=== PATIENT | female | born 1935 | race Hispanic/Latino ===

== ENCOUNTER 2017-01-28 10:11 | Emergency (ER) | payer MEDICARE, MEDICAID | END 2017-01-28 11:17 | disposition home or self-care (01) | LOC: SCSER 10:11 | DX: R23.4 Changes in skin texture (principal); Z85.72 Personal history of non-Hodgkin lymphomas; I11.0 Hypertensive heart disease with heart failure; I50.9 Heart failure, unspecified; E78.5 Hyperlipidemia, unspecified | CPT/HCPCS: 99283 ==

== ENCOUNTER 2017-02-16 10:10 | Outpatient (CLI) | payer MEDICARE, MEDICAID ==
--- NOTE | 2017-02-16 13:11 | CT ---
CT OF THE BRAIN WITHOUT AND WITH CONTRAST: Date: 02/16/17 COMPARISON: None. HISTORY: Follicular lymphoma, Grade II, with mass right side of face. TECHNIQUE: Multiple contiguous axial images were obtained in a CT of the brain without and with IV contrast. FINDINGS: The brain is normal in morphology and attenuation without focal lesions or confluent areas of infarct ion. There is no evidence of hydrocephalus, intracranial hemorrhage, or extra-axial fluid collection. No abnormal enhancement is seen. The calvarium and overlying soft tissues are unremarkable. The paranasal sinuses and mastoid air cell s are well aerated. There appear to be prominent lymph nodes in the neck, right greater than left, but these are only par tially visualized. IMPRESSION: No significant intracranial abnormality. POS: [facility]
--- NOTE | 2017-02-16 13:28 | CT ---
CT OF THE SINUSES WITH AND WITHOUT CONTRAST: CLINICAL HISTORY: Follicular lymphoma, grade 2. FINDINGS: Noncontrast imaging reveals numerous bilateral parotid and periparotid enlarged lymph nodes, which de monstrate avid enhancement. A dominant sized grouping of lymph nodes is at the right posterior parot id region, at 18 mm in diameter. There is added soft tissue of the right preauricular region bilater ally, more notable on the right, which may relate to adenopathy or, alternatively, a component of acc essory salivary gland tissue. On the right, this region measures 2.6 cm. There is prominent opacifi cation of the right major sphenoid air cell, with an associated fluid level, with scattered additiona l mucosal thickening of the paranasal sinuses. There is mild mastoid opacification bilaterally. No acute osseous pathology evident. Orbital contents are nonacute in appearance. The lacrimal glands a re symmetric in volume bilaterally, as are the extraocular muscles. IMPRESSION: Extensive bilateral adenopathy of the face, primarily at the parotid/periparotid regions, correspondi ng to the patient's history of lymphoma. POS: [facility]
--- NOTE | 2017-02-16 13:40 | CT ---
CT OF THE CHEST WITHOUT AND WITH CONTRAST: COMPARISON: None. HISTORY: Follicular lymphoma, grade II. TECHNIQUE: Multiple contiguous axial images were obtained in a CT of the chest without and with contrast. Coron al reformats were performed. This exam was done with and without contrast as the insurance company [employer] only approve a with and without contrast and not a with contrast only. FINDINGS: The heart is enlarged. Atherosclerotic calcifications are seen in the aorta and coronary arteries. There are enlarged mediastinal lymph nodes. The largest is seen in the prevascular space measuring 2 .5 cm in greatest dimension. No focal infiltrates are seen in the lungs. Atelectasis is seen in the lung bases. No pleural effus ion is seen. There is a calcified granuloma in the left upper lobe. Degenerative changes are seen in the spine. There are enlarged retroperitoneal lymph nodes in the vi sualized upper abdomen. There also appear to be enlarged cheikh hepatis lymph nodes measuring up to 1 .6 cm in size. The other visualized upper abdominal organs are unremarkable. The chest wall soft ti ssues are unremarkable. No axillary adenopathy is seen. IMPRESSION: 1. Enlarged hilar lymph nodes as above. 2. Enlarged cheikh hepatis and retroperitoneal lymph nodes in the upper abdomen. POS: [facility]
== END 2017-02-16 10:11 | disposition home or self-care (01) ==
LOC: CT 10:10
PROVIDERS: ATTEND Internal Medicine Hematology & Oncology
DX: C82.18 Follicular lymphoma grade II, lymph nodes of multiple sites (principal); R22.0 Localized swelling, mass and lump, head
CPT/HCPCS: 70470; 71270

== ENCOUNTER 2017-02-26 10:32 | Emergency (ER) | payer MEDICARE, MEDICAID ==
[2017-02-26 11:14] LABS: #Eosinphils 0.4 thou/uL (0.0-0.7); #Lymphocytes 1.2 thou/uL (1.20-3.40); #Monocytes 1.1 thou/uL (0.11-0.59); #Neutrophils 6.6 thou/uL (1.40-6.50); %Basophils 0.5 % (0.0-1.0); %Eosinophils 4.8 % (0.0-10.0); %Lymphocytes 12.4 % (21.0-51.0); %Monocytes 11.4 % (0.0-10.0); %Neutrophils 70.9 % (42.0-75.0); Hemoglobin 13.9 g/dL (12.0-16.0); Mean Corpuscular HGB CONC 32.5 g/dL (32.0-36.0); Mean Corpuscular Hemoglobin 29.2 pg (27.0-31.0); Mean Corpuscular Volume 89.6 fl (81.0-99.0); Mean Platelet Volume 7.7 fL (7.4-10.4); Platelet Count 241 thou/uL (130-400); RBC Distribution Width 13.3 % (11.5-14.5); Red Blood Cell (RBC) Count 4.76 mill/uL (4.20-5.40); White Blood Cell (WBC) Count 9.4 thou/uL (4.8-10.8)
--- NOTE | 2017-02-26 11:31 | RAD ---
CHEST 1 VIEW: Date: 02/26/17 HISTORY: Chest pain. COMPARISON: 03/06/14, 09/05/11. FINDINGS: Portable supine chest demonstrates cardiomegaly and atherosclerosis of aorta. Pulmonary vessels and h ilum are normal. Minimal blunting left costophrenic angle. Right costophrenic angle is clear. Interst itial changes in left lung base. No pneumothorax on this supine projection. IMPRESSION: 1. Interstitial changes in the left lung base. 2. Atherosclerosis. POS: [facility]
[2017-02-26 11:42] LABS: CKMB 1.3 ng/mL (0-6.6)
[2017-02-26 11:46] LABS: ALT (SGPT) 18 U/L (8-55); AST (SGOT) 28 U/L (5-34); Albumin 4.4 g/dL (3.4-4.8); Alkaline Phosphatase 96 U/L (40-150); Anion Gap 17 mmol/L (10-20); BUN (Urea Nitrogen) 11 mg/dL (9.8-20.1); Bilirubin, Total 0.9 mg/dL (0.2-1.2); CK (CPK) 54 U/L (29-168); CRP (Inflammatory) 1.21 mg/dL (= or < 0.5); Calc. Creatinine Clearance 0 mL/min (70-130); Calcium 9.5 mg/dL (7.8-10.44); Carbon Dioxide 19 mmol/L (23-31); Chloride 105 mmol/L (98-107); Estimated GFR-MDRD 82; Globulin 2.3 g/dL (2.4-3.5); Glucose 97 mg/dL (83-110); Protein, Total 6.7 g/dL (6.0-8.3); Sodium 137 mmol/L (136-145)
--- NOTE | 2017-02-26 12:20 | ULT ---
BILATERAL LOWER EXTREMITY VENOUS ULTRASOUND WITH DOPPLER: Date: 02/26/17 HISTORY: Bilateral lower extremity edema. COMPARISON: 09/05/11. TECHNIQUE: Brambila scale, color flow, Doppler imaging, and spectral waveform analysis performed of the left and rig ht lower extremity deep venous system. FINDINGS: Bilaterally, there is compressibility, presence of flow, and augmentation in the common femoral, femo ral vein, and popliteal vein. There is flow in bilateral greater saphenous veins, profunda veins, and posterior tibial veins. IMPRESSION: No evidence of thrombus in the left or right lower extremity deep venous system. POS: [facility]
--- NOTE | 2017-03-17 16:23 | EKG ---
Test Reason : Blood Pressure : / mmHG Vent. Rate : 070 BPM Atrial Rate : 070 BPM P-R Int : 210 ms QRS Dur : 070 ms QT Int : 414 ms P-R-T Axes : 059 057 060 degrees QTc Int : 447 ms Sinus rhythm with 1st degree A-V block T wave Inversion II Septal infarct , age undetermined Abnormal ECG Confirmed by CHANNING HANSEN M.D. ([id number]), graphic editor ALTAF GOLD ([id number]) on 03/17/2017 4:23:24 PM Referred By: ERMD Confirmed By:CHANNING HANSEN M.D.
== END 2017-02-26 12:57 | disposition home or self-care (01) ==
LOC: ERS 10:32
DX: R60.0 Localized edema (principal); E03.9 Hypothyroidism, unspecified; I11.0 Hypertensive heart disease with heart failure; I50.9 Heart failure, unspecified; E78.5 Hyperlipidemia, unspecified; Z79.899 Other long term (current) drug therapy
CPT/HCPCS: 36415; 71045; 80053; 82550; 82553; 83605; 83880; 84443; 84484; 85025; 86140; 86850; 86900; 86901; 87040; 93005; 93970; 94760

== ENCOUNTER 2017-03-06 09:29 | Day surgery (SDC) | payer MEDICARE, MEDICAID ==
[2017-03-06] MEDS ORDERED: Sodium Chloride 0.9% 40 ML ONE (09:38)
[2017-03-06 09:57] VITALS: BP 178/77; TEMP 97.8
[2017-03-06] MEDS ORDERED: Acetaminophen 500 MG TAB PO PRN (10:39)
[2017-03-06] MEDS ORDERED: Dexamethasone 10 MG in Sodium Chloride 0.9% 50 ML IVPB SCH (10:45)
[2017-03-06] MEDS ORDERED: diphenhydrAMINE 50 MG in Sodium Chloride 0.9% 50 ML IVPB SCH (10:45)
[2017-03-06] MEDS ORDERED: Palonosetron HCl 0.25 MG in Sodium Chloride 0.9% 50 ML IVPB SCH (10:45)
[2017-03-06] MEDS ORDERED: RITUXIMAB IVPB SCH (11:00)
[2017-03-06] MEDS ORDERED: BENDAMUSTINE IVPB SCH (11:00)
[2017-03-06] MEDS ORDERED: SODIUM CHLORIDE 0.9% IVPB SCH ×2 (11:00)
== END 2017-03-06 18:42 | disposition home or self-care (01) ==
LOC: ONC/OP 09:29
PROVIDERS: ATTEND Internal Medicine Hematology & Oncology
DX: Z51.11 Encounter for antineoplastic chemotherapy (principal); C82.18 Follicular lymphoma grade II, lymph nodes of multiple sites; I51.9 Heart disease, unspecified; I10 Essential (primary) hypertension; E78.5 Hyperlipidemia, unspecified; Z90.710 Acquired absence of both cervix and uterus; Z98.890 Other specified postprocedural states
CPT/HCPCS: 96367; 96413; 96415; 96417; A4216; J1100; J1200; J2469; J7050; J9034; J9310

== ENCOUNTER 2017-03-07 09:33 | Day surgery (SDC) | payer MEDICARE, MEDICAID ==
[2017-03-07] MEDS ORDERED: Pegfilgrastim 6 MG/0.6 ML Delivery Kit SQ SCH (10:00)
[2017-03-07] MEDS ORDERED: BENDAMUSTINE IVPB SCH ×2 (10:00)
[2017-03-07] MEDS ORDERED: SODIUM CHLORIDE IVPB SCH ×2 (10:00)
[2017-03-07] MEDS ORDERED: ADMIXTURE FEE IVPB SCH ×2 (10:00)
[2017-03-07 10:30] VITALS: BP 150/67; TEMP 98
== END 2017-03-07 13:36 | disposition home or self-care (01) ==
LOC: ONC/OP 09:33
PROVIDERS: ATTEND Internal Medicine Hematology & Oncology
DX: Z51.11 Encounter for antineoplastic chemotherapy (principal); C82.18 Follicular lymphoma grade II, lymph nodes of multiple sites; I10 Essential (primary) hypertension; E78.5 Hyperlipidemia, unspecified; Z90.711 Acquired absence of uterus with remaining cervical stump; Z98.890 Other specified postprocedural states; Z79.899 Other long term (current) drug therapy; Z79.82 Long term (current) use of aspirin
CPT/HCPCS: 96372; 96377; 96413; J2505; J7050; J9033; J9034

== ENCOUNTER 2017-03-12 19:50 | Emergency (ER) | payer MEDICARE, MEDICAID | END 2017-03-12 20:39 | disposition left against medical advice (07) | LOC: ERS 19:50 | DX: Z53.21 Procedure and treatment not carried out due to patient leaving prior to being seen by health care provider (principal) ==

== ENCOUNTER 2017-04-03 10:21 | Day surgery (SDC) | payer MEDICARE, MEDICAID ==
[2017-04-03] MEDS ORDERED: Acetaminophen 500 MG TAB PO PRN (10:35)
[2017-04-03] MEDS ORDERED: RITUXIMAB IVPB SCH ×2 (10:45→11:00)
[2017-04-03] MEDS ORDERED: diphenhydrAMINE 50 MG/ML VIAL IVP SCH (10:45)
[2017-04-03] MEDS ORDERED: ADMIXTURE FEE IVPB SCH ×2 (10:45)
[2017-04-03] MEDS ORDERED: Dexamethasone 4 mg/ml Vial SLOW IVP SCH (10:45)
[2017-04-03] MEDS ORDERED: SODIUM CHLORIDE IVPB SCH ×2 (10:45)
[2017-04-03] MEDS ORDERED: BENDAMUSTINE IVPB SCH (10:45)
[2017-04-03] MEDS ORDERED: PALONOSETRON HCL 0.05 MG/ML 5 ML VIAL IVP SCH (10:45)
[2017-04-03] MEDS ORDERED: Sodium Chloride 0.9% 50 ML ONE (10:50)
[2017-04-03] MEDS ORDERED: SODIUM CHLORIDE 0.9% IVPB SCH (11:00)
[2017-04-03 11:34] VITALS: BP 205/81; TEMP 98.2
== END 2017-04-03 15:34 | disposition home or self-care (01) ==
LOC: ONC/OP 10:21
PROVIDERS: ATTEND Internal Medicine Hematology & Oncology
DX: Z51.11 Encounter for antineoplastic chemotherapy (principal); C82.18 Follicular lymphoma grade II, lymph nodes of multiple sites; I10 Essential (primary) hypertension; K59.09 Other constipation
CPT/HCPCS: 36415; 80053; 82248; 83615; 84100; 84550; 96375; 96413; 96415; 96417; A4216; J1100; J1200; J2469; J7050; J9034; J9310

== ENCOUNTER 2017-04-04 08:45 | Day surgery (SDC) | payer MEDICARE, MEDICAID ==
[2017-04-04] MEDS ORDERED: Pegfilgrastim 6 MG/0.6 ML Delivery Kit SQ SCH (09:00)
[2017-04-04] MEDS ORDERED: ADMIXTURE FEE IVPB SCH (09:00)
[2017-04-04] MEDS ORDERED: SODIUM CHLORIDE IVPB SCH (09:00)
[2017-04-04] MEDS ORDERED: BENDAMUSTINE IVPB SCH (09:00)
[2017-04-04] MEDS ORDERED: Sodium Chloride 0.9% 30 ML ONE (10:03)
[2017-04-04 10:04] VITALS: TEMP 98.1
== END 2017-04-04 11:01 | disposition home or self-care (01) ==
LOC: ONC/OP 08:45
PROVIDERS: ATTEND Internal Medicine Hematology & Oncology
DX: Z51.11 Encounter for antineoplastic chemotherapy (principal); C82.18 Follicular lymphoma grade II, lymph nodes of multiple sites; I10 Essential (primary) hypertension
CPT/HCPCS: 96377; 96413; A4216; J2505; J7050; J9034

== ENCOUNTER 2017-05-01 09:58 | Day surgery (SDC) | payer MEDICARE, MEDICAID ==
[2017-05-01] MEDS ORDERED: Acetaminophen 500 MG TAB PO PRN (10:14)
[2017-05-01] MEDS ORDERED: PALONOSETRON HCL 0.05 MG/ML 5 ML VIAL IVP SCH (10:15)
[2017-05-01] MEDS ORDERED: diphenhydrAMINE 50 MG/ML VIAL IVP SCH (10:15)
[2017-05-01] MEDS ORDERED: Dexamethasone 10 MG/ML VIAL SLOW IVP SCH (10:15)
[2017-05-01] MEDS ORDERED: ADMIXTURE FEE IVPB SCH ×3 (10:30→10:45)
[2017-05-01] MEDS ORDERED: RITUXIMAB IVPB SCH (10:30)
[2017-05-01] MEDS ORDERED: SODIUM CHLORIDE IVPB SCH ×3 (10:30→10:45)
[2017-05-01] MEDS ORDERED: BENDAMUSTINE IVPB SCH ×2 (10:30→10:45)
[2017-05-01 11:54] VITALS: BP 175/74; TEMP 98.4
== END 2017-05-01 14:28 | disposition home or self-care (01) ==
LOC: ONC/OP 09:58
PROVIDERS: ATTEND Internal Medicine Hematology & Oncology
DX: Z51.11 Encounter for antineoplastic chemotherapy (principal); C82.18 Follicular lymphoma grade II, lymph nodes of multiple sites; K59.09 Other constipation; E78.5 Hyperlipidemia, unspecified; I10 Essential (primary) hypertension; Z79.82 Long term (current) use of aspirin; Z79.899 Other long term (current) drug therapy
CPT/HCPCS: 36415; 80053; 82248; 83615; 84100; 84550; 96375; 96413; 96415; 96417; J1100; J1200; J2469; J7050; J9033; J9034; J9310

== ENCOUNTER 2017-05-02 09:12 | Day surgery (SDC) | payer MEDICARE, MEDICAID ==
[2017-05-02] MEDS ORDERED: ADMIXTURE FEE IVPB SCH ×2 (09:30→09:45)
[2017-05-02] MEDS ORDERED: SODIUM CHLORIDE IVPB SCH ×2 (09:30→09:45)
[2017-05-02] MEDS ORDERED: Pegfilgrastim 6 MG/0.6 ML Delivery Kit SQ SCH (09:30)
[2017-05-02] MEDS ORDERED: BENDAMUSTINE IVPB SCH ×2 (09:30→09:45)
[2017-05-02] MEDS ORDERED: Sodium Chloride 0.9% 20 ML ONE (09:34)
== END 2017-05-02 11:17 | disposition home or self-care (01) ==
LOC: ONC/OP 09:12
PROVIDERS: ATTEND Internal Medicine Hematology & Oncology
DX: Z51.11 Encounter for antineoplastic chemotherapy (principal); C82.18 Follicular lymphoma grade II, lymph nodes of multiple sites; E07.9 Disorder of thyroid, unspecified; E78.00 Pure hypercholesterolemia, unspecified; Z98.890 Other specified postprocedural states
CPT/HCPCS: 96377; 96413; A4216; J2505; J7050; J9033; J9034

== ENCOUNTER 2017-05-24 08:47 | Outpatient (CLI) | payer MEDICARE, MEDICAID ==
--- NOTE | 2017-05-24 14:01 | PET ---
NUCLEAR MEDICINE FDG PET CT: (Positron Emission Tomography) DATE: 05/24/17 HISTORY: 82-year-old female with follicular lymphoma. Restaging. C82.18. COMPARISON: PET scan of 01/02/12. TECHNIQUE: IV injection F-18 Fluorodeoxyglucose (FDG) dose: 10.6 mCi PET and attenuation-correction CT performed from skull base to proximal thighs. FINDINGS: SUV (standard uptake value) numbers given are maximum SUV's: There is no abnormal FDG-avid lesion, ivolving lymph nodes or any other lesion in the neck, chest, ab domen, or pelvis. The previous PET scan of 2011 was also negative. IMPRESSION: Negative. EVELIA King POS: [facility]
== END 2017-05-24 08:48 | disposition home or self-care (01) ==
LOC: PET 08:47
PROVIDERS: ATTEND Internal Medicine Hematology & Oncology
DX: C82.90 Follicular lymphoma, unspecified, unspecified site (principal)
CPT/HCPCS: 78815; A9552

== ENCOUNTER 2017-05-29 09:57 | Day surgery (SDC) | payer MEDICARE, MEDICAID ==
[2017-05-29] MEDS ORDERED: Acetaminophen 500 MG TAB PO PRN (10:07)
[2017-05-29] MEDS ORDERED: SODIUM CHLORIDE IVPB SCH ×2 (10:15)
[2017-05-29] MEDS ORDERED: PALONOSETRON HCL 0.05 MG/ML 5 ML VIAL IVP SCH (10:15)
[2017-05-29] MEDS ORDERED: ADMIXTURE FEE IVPB SCH ×2 (10:15)
[2017-05-29] MEDS ORDERED: BENDAMUSTINE IVPB SCH (10:15)
[2017-05-29] MEDS ORDERED: diphenhydrAMINE 50 MG/ML VIAL IVP SCH (10:15)
[2017-05-29] MEDS ORDERED: RITUXIMAB IVPB SCH (10:15)
[2017-05-29] MEDS ORDERED: Dexamethasone 10 MG/ML VIAL SLOW IVP SCH (10:15)
[2017-05-29 10:41] VITALS: BP 197/81; TEMP 98.1
[2017-05-29] MEDS ORDERED: Sodium Chloride 0.9% 40 ML ONE (10:49)
== END 2017-05-29 15:08 | disposition home or self-care (01) ==
LOC: ONC/OP 09:57
PROVIDERS: ATTEND Internal Medicine Hematology & Oncology
DX: Z51.11 Encounter for antineoplastic chemotherapy (principal); C82.18 Follicular lymphoma grade II, lymph nodes of multiple sites; I10 Essential (primary) hypertension; E78.5 Hyperlipidemia, unspecified; Z79.82 Long term (current) use of aspirin; Z79.899 Other long term (current) drug therapy
CPT/HCPCS: 36415; 80053; 82248; 83615; 84100; 84550; 96375; 96413; 96415; 96417; A4216; J1100; J1200; J2469; J7050; J9034; J9310

== ENCOUNTER 2017-05-30 09:02 | Day surgery (SDC) | payer MEDICARE, MEDICAID ==
[2017-05-30] MEDS ORDERED: SODIUM CHLORIDE 0.9% IVPB SCH ×2 (09:45→10:00)
[2017-05-30] MEDS ORDERED: BENDAMUSTINE IVPB SCH ×2 (09:45→10:00)
[2017-05-30] MEDS ORDERED: Pegfilgrastim 6 MG/0.6 ML Delivery Kit SQ SCH (09:45)
[2017-05-30 09:49] VITALS: BP 202/82; TEMP 97.4
[2017-05-30] MEDS ORDERED: Sodium Chloride 0.9% 30 ML ONE (12:30)
== END 2017-05-30 12:58 | disposition home or self-care (01) ==
LOC: ONC/OP 09:02
PROVIDERS: ATTEND Internal Medicine Hematology & Oncology
DX: Z51.11 Encounter for antineoplastic chemotherapy (principal); C82.18 Follicular lymphoma grade II, lymph nodes of multiple sites; E03.9 Hypothyroidism, unspecified; Z79.82 Long term (current) use of aspirin; Z79.899 Other long term (current) drug therapy
CPT/HCPCS: 96377; 96413; A4216; J2505; J7050; J9033; J9034

== ENCOUNTER 2017-06-26 09:22 | Day surgery (SDC) | payer MEDICARE, MEDICAID ==
[2017-06-26] MEDS ORDERED: PALONOSETRON HCL 0.05 MG/ML 5 ML VIAL IVP SCH (09:30)
[2017-06-26] MEDS ORDERED: Dexamethasone 10 MG/ML VIAL SLOW IVP SCH (09:30)
[2017-06-26] MEDS ORDERED: diphenhydrAMINE 50 MG/ML VIAL IVP SCH (09:30)
[2017-06-26] MEDS ORDERED: Acetaminophen 500 MG TAB PO SCH (09:30)
[2017-06-26 09:39] VITALS: TEMP 97.8
[2017-06-26] MEDS ORDERED: ADMIXTURE FEE IVPB SCH ×3 (09:45)
[2017-06-26] MEDS ORDERED: BENDAMUSTINE IVPB SCH ×2 (09:45)
[2017-06-26] MEDS ORDERED: SODIUM CHLORIDE IVPB SCH ×3 (09:45)
[2017-06-26] MEDS ORDERED: RITUXIMAB IVPB SCH (09:45)
[2017-06-26 14:59] VITALS: BP 191/80
== END 2017-06-26 14:59 | disposition home or self-care (01) ==
LOC: ONC/OP 09:22
PROVIDERS: ATTEND Internal Medicine Hematology & Oncology
DX: Z51.11 Encounter for antineoplastic chemotherapy (principal); C82.18 Follicular lymphoma grade II, lymph nodes of multiple sites; E78.5 Hyperlipidemia, unspecified; I11.9 Hypertensive heart disease without heart failure; Z79.899 Other long term (current) drug therapy
CPT/HCPCS: 80053; 82248; 83615; 84100; 84550; 96375; 96413; 96415; 96417; J1100; J1200; J2469; J7050; J9033; J9034; J9310

== ENCOUNTER 2017-06-27 08:21 | Day surgery (SDC) | payer MEDICARE, MEDICAID ==
[2017-06-27] MEDS ORDERED: BENDAMUSTINE IVPB SCH ×2 (08:30→08:45)
[2017-06-27] MEDS ORDERED: ADMIXTURE FEE IVPB SCH ×2 (08:30→08:45)
[2017-06-27] MEDS ORDERED: Pegfilgrastim 6 MG/0.6 ML Delivery Kit SQ SCH (08:30)
[2017-06-27] MEDS ORDERED: SODIUM CHLORIDE IVPB SCH ×2 (08:30→08:45)
[2017-06-27] MEDS ORDERED: Sodium Chloride 0.9% 30 ML ONE (08:45)
[2017-06-27 09:44] VITALS: BP 192/82; TEMP 97.7
== END 2017-06-27 11:28 | disposition home or self-care (01) ==
LOC: ONC/OP 08:21
PROVIDERS: ATTEND Internal Medicine Hematology & Oncology
DX: Z51.11 Encounter for antineoplastic chemotherapy (principal); C82.18 Follicular lymphoma grade II, lymph nodes of multiple sites
CPT/HCPCS: 96377; 96413; A4216; J2505; J7050; J9033; J9034

== ENCOUNTER 2017-07-24 09:22 | Day surgery (SDC) | payer MEDICARE, MEDICAID ==
[2017-07-24] MEDS ORDERED: Sodium Chloride 0.9% 40 ML ONE (09:29)
[2017-07-24] MEDS ORDERED: PALONOSETRON HCL 0.05 MG/ML 5 ML VIAL IVP SCH (09:30)
[2017-07-24] MEDS ORDERED: BENDAMUSTINE IVPB SCH ×2 (09:30→09:45)
[2017-07-24] MEDS ORDERED: SODIUM CHLORIDE 0.9% IVPB SCH ×3 (09:30→09:45)
[2017-07-24] MEDS ORDERED: diphenhydrAMINE 50 MG/ML VIAL IVP SCH (09:30)
[2017-07-24] MEDS ORDERED: Dexamethasone 10 MG/ML VIAL SLOW IVP SCH (09:30)
[2017-07-24] MEDS ORDERED: Acetaminophen 500 MG TAB PO PRN (09:34)
[2017-07-24] MEDS ORDERED: RITUXIMAB IVPB SCH (09:45)
[2017-07-24 11:30] VITALS: BP 176/70; TEMP 97.6
== END 2017-07-24 16:18 | disposition home or self-care (01) ==
LOC: ONC/OP 09:22
PROVIDERS: ATTEND Internal Medicine Hematology & Oncology
DX: Z51.11 Encounter for antineoplastic chemotherapy (principal); C82.18 Follicular lymphoma grade II, lymph nodes of multiple sites; I11.9 Hypertensive heart disease without heart failure; K59.09 Other constipation; E78.5 Hyperlipidemia, unspecified
CPT/HCPCS: 96375; 96413; 96415; 96417; A4216; J1100; J1200; J2469; J7050; J9033; J9034; J9310

== ENCOUNTER 2017-07-25 09:03 | Day surgery (SDC) | payer MEDICARE, MEDICAID ==
[2017-07-25] MEDS ORDERED: BENDAMUSTINE IVPB SCH (09:30)
[2017-07-25] MEDS ORDERED: SODIUM CHLORIDE 0.9% IVPB SCH (09:30)
[2017-07-25] MEDS ORDERED: Pegfilgrastim 6 MG/0.6 ML Delivery Kit SQ SCH (09:30)
[2017-07-25 09:45] VITALS: BP 126/76; TEMP 98.1
[2017-07-25] MEDS ORDERED: Sodium Chloride 0.9% 20 ML ONE (10:23)
== END 2017-07-25 12:42 | disposition home or self-care (01) ==
LOC: ONC/OP 09:03
PROVIDERS: ATTEND Internal Medicine Hematology & Oncology
DX: Z51.11 Encounter for antineoplastic chemotherapy (principal); C82.18 Follicular lymphoma grade II, lymph nodes of multiple sites
CPT/HCPCS: 96377; 96413; A4216; J2505; J7050; J9034

== ENCOUNTER 2017-09-03 07:08 | Outpatient (CLI) | payer MEDICARE, MEDICAID ==
[2017-09-03] MEDS ORDERED: ISOVUE-370 76%-LOCM 1 ML ONE (11:53)
== END 2017-09-03 07:09 | disposition home or self-care (01) ==
LOC: BICCT 07:08
PROVIDERS: ATTEND Internal Medicine Hematology & Oncology
DX: C82.18 Follicular lymphoma grade II, lymph nodes of multiple sites (principal); R59.0 Localized enlarged lymph nodes
CPT/HCPCS: 71260; 74177; 82565

== ENCOUNTER → 2017-09-18 | Day surgery (SDC) | payer MEDICARE, MEDICAID ==
[~2017-09-18] MED LIST: Acetaminophen 500 MG TAB PO PRN; Dexamethasone 10 MG/ML VIAL SLOW IVP SCH; Dexamethasone 20 MG in Sodium Chloride 0.9% 50 ML IVPB SCH; OBINUTUZUMAB IV SCH; SODIUM CHLORIDE 0.9% IV SCH; Sodium Chloride 0.9% 20 ML ONE; diphenhydrAMINE 50 MG in Sodium Chloride 0.9% 50 ML IVPB SCH; diphenhydrAMINE 50 MG/ML VIAL IVP SCH
[2017-09-18 09:08] VITALS: TEMP 98
[2017-09-18 16:21] VITALS: BP 176/75
== END ==
LOC: ONC/OP 08:23
PROVIDERS: ATTEND Internal Medicine Hematology & Oncology
DX: Z51.11 Encounter for antineoplastic chemotherapy (principal); C82.18 Follicular lymphoma grade II, lymph nodes of multiple sites
CPT/HCPCS: 96367; 96413; 96415; A4216; J1100; J1200; J7050; J9301

== ENCOUNTER 2017-10-26 17:19 | Emergency (ER) | payer MEDICARE, MEDICAID | END 2017-10-26 20:06 | disposition home or self-care (01) | LOC: ERS 17:19 | DX: L03.114 Cellulitis of left upper limb (principal); L30.9 Dermatitis, unspecified; E03.9 Hypothyroidism, unspecified; I11.0 Hypertensive heart disease with heart failure; I50.9 Heart failure, unspecified; E78.5 Hyperlipidemia, unspecified | CPT/HCPCS: 99283 ==

== ENCOUNTER 2017-11-09 10:01 | Day surgery (SDC) | payer MEDICARE, MEDICAID ==
[2017-11-09 10:19] VITALS: TEMP 97.9
[2017-11-09] MEDS ORDERED: Acetaminophen 500 MG TAB PO PRN (10:23)
[2017-11-09] MEDS ORDERED: OBINUTUZUMAB IV SCH (10:30)
[2017-11-09] MEDS ORDERED: diphenhydrAMINE 50 MG in Sodium Chloride 0.9% 50 ML IVPB SCH (10:30)
[2017-11-09] MEDS ORDERED: Dexamethasone 20 MG in Sodium Chloride 0.9% 50 ML IVPB SCH (10:30)
[2017-11-09] MEDS ORDERED: SODIUM CHLORIDE 0.9% IV SCH (10:30)
[2017-11-09] MEDS ORDERED: Dexamethasone Sod Phosphate 20 MG in Sodium Chloride 0.9% 50 ML IVPB SCH (10:45)
== END 2017-11-09 16:16 | disposition home or self-care (01) ==
LOC: ONC/OP 10:01
PROVIDERS: ATTEND Internal Medicine Hematology & Oncology
DX: Z51.11 Encounter for antineoplastic chemotherapy (principal); C82.18 Follicular lymphoma grade II, lymph nodes of multiple sites; K59.09 Other constipation; I11.9 Hypertensive heart disease without heart failure; E78.5 Hyperlipidemia, unspecified; Z90.710 Acquired absence of both cervix and uterus
CPT/HCPCS: 36415; 80053; 82248; 83615; 84100; 84550; 96375; 96413; 96415; J1100; J1200; J7050; J9301

== ENCOUNTER 2018-01-04 09:54 | Day surgery (SDC) | payer MEDICARE, MEDICAID ==
[2018-01-04] MEDS ORDERED: SODIUM CHLORIDE 0.9% IV SCH (10:15)
[2018-01-04] MEDS ORDERED: diphenhydrAMINE 50 MG in Sodium Chloride 0.9% 50 ML IVPB SCH (10:15)
[2018-01-04] MEDS ORDERED: OBINUTUZUMAB IV SCH (10:15)
[2018-01-04] MEDS ORDERED: Acetaminophen 500 MG TAB PO PRN (10:16)
[2018-01-04] MEDS ORDERED: Dexamethasone Sod Phosphate 20 MG in Sodium Chloride 0.9% 50 ML IVPB SCH (10:30)
[2018-01-04 12:06] VITALS: BP 157/67; TEMP 97.9
[2018-01-04] MEDS ORDERED: Sodium Chloride 0.9% 20 ML ONE (13:49)
== END 2018-01-04 16:59 | disposition home or self-care (01) ==
LOC: ONC/OP 09:54
PROVIDERS: ATTEND Internal Medicine Hematology & Oncology
DX: Z51.11 Encounter for antineoplastic chemotherapy (principal); C82.18 Follicular lymphoma grade II, lymph nodes of multiple sites; I10 Essential (primary) hypertension; E78.5 Hyperlipidemia, unspecified; Z79.899 Other long term (current) drug therapy
CPT/HCPCS: 36415; 80053; 82248; 83615; 84100; 84550; 96375; 96413; 96415; J1200; J7050; J9301

== ENCOUNTER 2018-03-08 08:58 | Day surgery (SDC) | payer MEDICARE, MEDICAID ==
[2018-03-08] MEDS ORDERED: OBINUTUZUMAB IV SCH (09:15)
[2018-03-08] MEDS ORDERED: SODIUM CHLORIDE 0.9% IV SCH (09:15)
[2018-03-08] MEDS ORDERED: diphenhydrAMINE 50 MG in Sodium Chloride 0.9% 50 ML IVPB SCH (09:15)
[2018-03-08] MEDS ORDERED: Dexamethasone 20 MG in Sodium Chloride 0.9% 50 ML IVPB SCH (09:15)
[2018-03-08] MEDS ORDERED: Sodium Chloride 0.9% 20 ML ONE ×2 (09:25→14:59)
[2018-03-08] MEDS ORDERED: Acetaminophen 500 MG TAB PO PRN (10:02)
[2018-03-08 14:13] VITALS: BP 173/74; TEMP 97.8
== END 2018-03-08 15:46 | disposition home or self-care (01) ==
LOC: ONC/OP 08:58
PROVIDERS: ATTEND Internal Medicine Hematology & Oncology
DX: Z51.11 Encounter for antineoplastic chemotherapy (principal); C82.18 Follicular lymphoma grade II, lymph nodes of multiple sites; I10 Essential (primary) hypertension; E78.5 Hyperlipidemia, unspecified; Z90.710 Acquired absence of both cervix and uterus; Z79.82 Long term (current) use of aspirin; Z79.899 Other long term (current) drug therapy; Z98.890 Other specified postprocedural states
CPT/HCPCS: 96375; 96413; 96415; J1100; J1200; J7050; J9301

== ENCOUNTER 2018-05-03 08:43 | Day surgery (SDC) | payer MEDICARE, MEDICAID ==
[~2018-05-03 08:43] MED LIST changes: -Dexamethasone 10 MG/ML VIAL SLOW IVP SCH; -Sodium Chloride 0.9% 20 ML ONE; -diphenhydrAMINE 50 MG/ML VIAL IVP SCH
[2018-05-03 15:16] VITALS: BP 143/55; TEMP 97.8
== END 2018-05-03 15:17 | disposition home or self-care (01) ==
LOC: ONC/OP 08:43
PROVIDERS: ATTEND Internal Medicine Hematology & Oncology
DX: Z51.12 Encounter for antineoplastic immunotherapy (principal); C82.18 Follicular lymphoma grade II, lymph nodes of multiple sites; I10 Essential (primary) hypertension; E78.5 Hyperlipidemia, unspecified; Z79.899 Other long term (current) drug therapy
CPT/HCPCS: 96375; 96413; 96415; J1100; J1200; J7050; J9301

== ENCOUNTER 2018-06-17 21:28 | Emergency (ER) | payer MEDICARE, MEDICAID ==
--- NOTE | 2018-06-17 23:03 | ULT ---
Left lower extremity venous Doppler ultrasound: 06/17/2018 COMPARISON: None HISTORY: Fall, trauma, pain, throbbing from groin to thigh TECHNIQUE: Multiplanar grayscale sonographic imaging of the venous structures left lower extremity ob tained with color flow and spectral analysis FINDINGS: The left common femoral vein, greater saphenous vein, profunda femoral vein, femoral vein, popliteal vein, and posterior tibial vein are patent. Normal blood flow, augmentation, and compression. No evidence for DVT. There is a prominent patent lesser saphenous vein in the posterior left upper calf. IMPRESSION: No evidence for DVT of the left lower extremity.
== END 2018-06-17 23:22 | disposition home or self-care (01) ==
LOC: ERS 21:28
DX: M79.605 Pain in left leg (principal); I11.0 Hypertensive heart disease with heart failure; I50.9 Heart failure, unspecified; E78.5 Hyperlipidemia, unspecified; E03.9 Hypothyroidism, unspecified; Z79.899 Other long term (current) drug therapy

== ENCOUNTER 2018-06-21 09:24 | Outpatient (CLI) | payer MEDICARE, MEDICAID ==
--- NOTE | 2018-06-21 10:39 | RAD ---
LUMBAR SPINE 2 VIEWS: Date: 06/21/18 HISTORY: Low back pain without injury. FINDINGS: Minimal dextroscoliosis of the lower lumbar vertebral column. Prominent vascular calcifications. Fair ly severe multilevel disc osteophytosis and facet arthrosis. No evidence for acute fracture. IMPRESSION: Levoscoliosis. Severe bony demineralization. Extensive spondylosis. POS: C
--- NOTE | 2018-06-21 10:48 | RAD ---
LEFT HIP 2 VIEWS: Date: 06/21/18 HISTORY: Left hip pain. FINDINGS: There are degenerative changes involving the left hip joint and SI joint with some enthesophytic lora ges. No acute fracture or dislocation. IMPRESSION: Degenerative changes without fracture or dislocation. POS: [facility]
== END 2018-06-21 09:25 | disposition home or self-care (01) ==
LOC: BICRAD 09:24
PROVIDERS: ATTEND Specialist
DX: M25.552 Pain in left hip (principal); M54.5 Low back pain; M16.12 Unilateral primary osteoarthritis, left hip; M47.816 Spondylosis without myelopathy or radiculopathy, lumbar region; M81.0 Age-related osteoporosis without current pathological fracture
CPT/HCPCS: 72100

== ENCOUNTER 2018-06-28 08:38 | Day surgery (SDC) | payer MEDICARE, MEDICAID ==
[2018-06-28 09:40] VITALS: BP 170/75; TEMP 98
== END 2018-06-28 14:17 | disposition home or self-care (01) ==
LOC: EDBD → ONC/OP 08:38
PROVIDERS: ATTEND Internal Medicine Hematology & Oncology
DX: Z51.12 Encounter for antineoplastic immunotherapy (principal); C82.18 Follicular lymphoma grade II, lymph nodes of multiple sites; Z79.82 Long term (current) use of aspirin; Z79.899 Other long term (current) drug therapy
CPT/HCPCS: 96375; 96413; 96415; J1100; J1200; J7050; J9301

== ENCOUNTER 2018-07-12 10:01 | Outpatient (CLI) | payer MEDICARE, MEDICAID ==
--- NOTE | 2018-07-12 10:36 | BD ---
EXAM: DEXA bone density examination HISTORY: 83-year-old postmenopausal female for screening COMPARISON: None FINDINGS: L1--bone mineral density 0.796 g/sq cm; T score -1.8 L2--bone mineral density 0.799 g/sq cm; T score -2.1 L3--bone mineral density 0.808 g/sq cm; T score -2.5 L4--bone mineral density 0.897 g/sq cm; T score -1.5 Total L1-L4--bone mineral density 0.87 g/sq cm; T score -2.0 Left femoral neck--bone mineral density0.616; T score -2.1 Total proximal left femur--bone mineral density 0.738; T score -1.7 IMPRESSION: Osteopenia This patient has a 10 year WHO fracture risk of a major osteoporotic fracture of 12% and of a hip fracture of 4%.
== END 2018-07-12 10:02 | disposition home or self-care (01) ==
LOC: BICMAMMO 10:01
PROVIDERS: ATTEND Specialist
DX: Z13.820 Encounter for screening for osteoporosis (principal); M15.0 Primary generalized (osteo)arthritis; M85.89 Other specified disorders of bone density and structure, multiple sites
CPT/HCPCS: 77080

== ENCOUNTER → 2018-08-23 | Day surgery (SDC) | payer MEDICARE, MEDICAID ==
[~2018-08-23] MED LIST changes: +Sodium Chloride 0.9% 20 ML ONE
[2018-08-23 12:30] VITALS: BP 158/70; TEMP 98.4
== END ==
LOC: EDBD → ONC/OP 10:02
PROVIDERS: ATTEND Internal Medicine Hematology & Oncology
DX: Z51.12 Encounter for antineoplastic immunotherapy (principal); C82.18 Follicular lymphoma grade II, lymph nodes of multiple sites
CPT/HCPCS: 36415; 80053; 82248; 83615; 84100; 84550; 96375; 96413; 96415; J1100; J1200; J7050; J9301

== ENCOUNTER 2018-08-27 12:31 | Outpatient (CLI) | payer MEDICARE, MEDICAID ==
--- NOTE | 2018-08-27 12:52 | RAD ---
EXAM: XR Lumbar Spine 2 Or 3 View DATE: 08/27/2018 12:00 AM INDICATION: Low back pain COMPARISON: June 21, 2018 FINDING: There is a stable grade 1 anterolisthesis of L5 on S1. There is stable levoscoliosis center ed at L2-3. There is diffuse osteopenia. No acute fracture is evident. The moderate multilevel spondylosis of the lumbar spine is stable. IMPRESSION:Stable exam. No acute osseous abnormality.
== END 2018-08-27 12:32 | disposition home or self-care (01) ==
LOC: BICRAD 12:31
PROVIDERS: ATTEND Specialist
DX: M54.5 Low back pain (principal)
CPT/HCPCS: 72100

== ENCOUNTER 2018-09-17 13:10 | Outpatient (CLI) | payer MEDICARE, MEDICAID ==
--- NOTE | 2018-09-17 14:01 | MRI ---
EXAM: MRI Lumbar Spine WO Con PROVIDED CLINICAL HISTORY: Back pain COMPARISON: None FINDINGS: 5 lumbar vertebral bodies are assumed. Slight anterolisthesis of L5 on S1. Lumbar alignment appears o therwise normal. Vertebral body heights appear preserved. There is a focal area of masslike signal alteration present within the S2 sacral segment right of midline, measuring approximately 1 cm. Regio nal marrow signal appears otherwise unremarkable. The conus medullaris is normal in signal and terminates at an appropriate level. At L1-2, there is no significant central canal or foraminal narrowing apparent. At L2-3, there is no significant central canal or foraminal narrowing apparent. At L3-4, there is mild disc space height loss and endplate degenerative change of the broad-based dis c bulge and bilateral facet arthritis. There is no significant central canal or foraminal narrowing apparent. At L4-5, there is disc space height loss and endplate degenerative change with a broad-based disc bul ge and bilateral facet arthritis. There is no significant central canal or foraminal narrowing apparent. At L5-S1, there is a broad-based disc bulge and bilateral facet arthritis. There is no significant ce ntral canal or right foraminal narrowing. There is left foraminal narrowing with potential for impingement on the exiting left L5 nerve root. IMPRESSION: 1. Focus of abnormal marrow signal involving S2, incompletely characterized on the basis of this stud y. Correlation with whole-body bone scan is recommended. 2. Lumbar spine disc and facet degenerative changes, with foraminal narrowing left of midline at L5-S 1 as above.
== END 2018-09-17 13:11 | disposition home or self-care (01) ==
LOC: BICMRI 13:10
PROVIDERS: ATTEND Specialist
DX: M54.9 Dorsalgia, unspecified (principal); M47.816 Spondylosis without myelopathy or radiculopathy, lumbar region; M51.36 Other intervertebral disc degeneration, lumbar region; M48.07 Spinal stenosis, lumbosacral region; R93.7 Abnormal findings on diagnostic imaging of other parts of musculoskeletal system
CPT/HCPCS: 72148

== ENCOUNTER 2018-09-18 16:13 | Emergency (ER) | payer MEDICARE, MEDICAID ==
[2018-09-18 17:04] LABS: Mean Corpuscular HGB CONC 34.1 g/dL (32.0-36.0); Mean Corpuscular Hemoglobin 30.1 pg (27.0-31.0); Mean Corpuscular Volume 88.5 fL (78.0-98.0); Mean Platelet Volume 6.7 fL (7.4-10.4); Platelet Count 262 thou/uL (130-400); RBC Distribution Width 12.6 % (11.5-14.5); White Blood Cell (WBC) Count 10.5 thou/uL (4.8-10.8)
[2018-09-18 17:10] LABS: PTT 28.5 SEC (22.9-36.1); Prothrombin Time 13.3 SEC (12.0-14.7)
[2018-09-18 17:11] LABS: D-Dimer Test 1.4 *mcg/mL (0.27-0.43)
[2018-09-18 17:31] LABS: Band 10 % (5-11); Eosinophils 10 % (0-10); Lymphocytes 2 % (21-51); MDiff Complete? YES; Monocytes 6 % (0-10); Neutrophil 67 % (42-75); Platelet Morphology Comment Appears Adequate; RBC Morphology Normal; Reactive Lymphocytes 4 % (0-10)
[2018-09-18 17:32] LABS: ALT (SGPT) 7 U/L (8-55); AST (SGOT) 19 U/L (5-34); Albumin 3.9 g/dL (3.4-4.8); Alkaline Phosphatase 95 U/L (40-150); Anion Gap 13 mmol/L (10-20); BUN (Urea Nitrogen) 16 mg/dL (9.8-20.1); Bilirubin, Total 0.3 mg/dL (0.2-1.2); Calc. Creatinine Clearance 0 mL/min (70-130); Calcium 10.3 mg/dL (7.8-10.44); Carbon Dioxide 23 mmol/L (23-31); Chloride 105 mmol/L (98-107); Estimated GFR-MDRD 67; Glucose 111 mg/dL (83-110); Protein, Total 5.9 g/dL (6.0-8.3); Sodium 138 mmol/L (136-145)
--- NOTE | 2018-09-18 18:01 | ULT ---
LEFT LOWER EXTREMITY VENOUS DUPLEX EXAM: 09/18/18 HISTORY: Left leg swelling and edema. Real time color Doppler evaluation of the left lower extremity was performed from groin to calf. This includes evaluation of common femoral, superficial and profunda femoral, saphenous, popliteal veins. There is edema changes within the calf and the posterior tibial veins could not be visualized. There is a patent deep venous system. There is normal compressibility and augmentation. There is no e vidence of DVT. IMPRESSION: No evidence of DVT of the left lower extremity. POS: [facility]
--- NOTE | 2018-09-18 20:05 | CT ---
CT ABDOMEN AND PELVIS WITH IV CONTRAST: 09/18/18 PROVIDED CLINICAL HISTORY: Pain. FINDINGS: The visualized lung bases are free of significant opacity. The heart is enlarged. There is a peripheral nodular contour to the liver suggesting cirrhosis. The solid abdominal organs d emonstrate an otherwise unremarkable CT appearance. There is no bowel dilatation, inflammatory fat stranding, free fluid , overt lymph node enlargement a pparent. There is no evidence for appendicitis. Conspicuous atherosclerotic vascular calcifications a re noted involving the abdominal aorta and its branches. No osteoblastic or osteolytic lesions are identified. There is abnormal soft tissue density present w ithin the partially visualized proximal left femoral diaphyseal region, incompletely characterized on the basis of this study. IMPRESSION: 1. Atherosclerosis. 2. Abnormal soft tissue density within the medullary cavity of the left proximal femur suspiciou s for metastatic disease or myeloma. 3. Peripheral nodular contour to the liver suggesting cirrhosis. POS: [facility]
== END 2018-09-18 19:48 | disposition home or self-care (01) ==
LOC: ERS 16:13
DX: M79.89 Other specified soft tissue disorders (principal); I11.0 Hypertensive heart disease with heart failure; I50.9 Heart failure, unspecified; E78.5 Hyperlipidemia, unspecified; E78.00 Pure hypercholesterolemia, unspecified; F32.9 Major depressive disorder, single episode, unspecified; Z79.899 Other long term (current) drug therapy
CPT/HCPCS: 36415; 74177; 80053; 83880; 85025; 85379; 85610; 85730

== ENCOUNTER 2018-09-22 13:55 | Inpatient (IN) | payer MEDICARE, MEDICAID ==
[~2018-09-22 13:55] MED LIST changes: -Acetaminophen 500 MG TAB PO PRN; -Dexamethasone 20 MG in Sodium Chloride 0.9% 50 ML IVPB SCH; +ISOVUE-370 76%-LOCM 1 ML ONE; -OBINUTUZUMAB IV SCH; -SODIUM CHLORIDE 0.9% IV SCH; -Sodium Chloride 0.9% 20 ML ONE; -diphenhydrAMINE 50 MG in Sodium Chloride 0.9% 50 ML IVPB SCH
[2018-09-22 15:05] LABS: ALT (SGPT) 15 U/L (8-55); AST (SGOT) 27 U/L (5-34); Albumin 4.1 g/dL (3.4-4.8); Alkaline Phosphatase 77 U/L (40-150); Anion Gap 18 mmol/L (10-20); BUN (Urea Nitrogen) 32 mg/dL (9.8-20.1); Bilirubin, Total 0.3 mg/dL (0.2-1.2); Calc. Creatinine Clearance 0 mL/min (70-130); Calcium 11.5 mg/dL (7.8-10.44); Carbon Dioxide 22 mmol/L (23-31); Chloride 101 mmol/L (98-107); Estimated GFR-MDRD 41; Globulin 1.9 g/dL (2.4-3.5); Glucose 115 mg/dL (83-110); Potassium 3.4 mmol/L (3.5-5.1); Sodium 138 mmol/L (136-145)
[2018-09-22 15:07] LABS: Carbamazepine-Tegretol Less than 1.9 ug/mL (4.0-12.0)
[2018-09-22] MEDS ORDERED: Morphine 4 MG/ML VIAL ONE (15:55)
[2018-09-22] MEDS ORDERED: Ondansetron PF 4 MG/2 ML Vial ONE (15:55)
[2018-09-22 16:24] LABS: #Eosinphils 0.3 thou/uL (0.0-0.7); #Monocytes 1.4 thou/uL (0.11-0.59); #Neutrophils 12.5 thou/uL (1.40-6.50); %Basophils 0.1 % (0.0-1.0); %Eosinophils 1.9 % (0.0-10.0); %Lymphocytes 6.7 % (21.0-51.0); %Monocytes 9.2 % (0.0-10.0); %Neutrophils 82.1 % (42.0-75.0); Hemoglobin 12.6 g/dL (12.0-16.0); Mean Corpuscular HGB CONC 34.4 g/dL (32.0-36.0); Mean Corpuscular Hemoglobin 30.2 pg (27.0-31.0); Mean Corpuscular Volume 87.9 fL (78.0-98.0); Mean Platelet Volume 7.2 fL (7.4-10.4); Platelet Count 249 thou/uL (130-400); RBC Distribution Width 12.3 % (11.5-14.5); Red Blood Cell (RBC) Count 4.17 mill/uL (4.20-5.40); White Blood Cell (WBC) Count 15.2 thou/uL (4.8-10.8)
--- NOTE | 2018-09-22 16:55 | ULT ---
ULTRASOUND DOPPLER DUPLEX VENOUS LEFT LOWER EXTREMITY: DATE: 09/22/2018 HISTORY: Pain and edema in left lower extremity in 83-year-old female TECHNIQUE: Grayscale, color-flow, and spectral analysis, of major veins of left lower extremity. FINDINGS: There is demonstration of blood flow with normal compressibility, of the left common femoral, profund a femoral, greater saphenous, femoral, popliteal, and posterior tibial, veins. IMPRESSION: Negative. No deep venous thrombosis of left lower extremity.
[2018-09-22] MEDS ORDERED: Piperacillin/Tazobactam 3.375 GM VIAL ONE (18:27)
--- NOTE | 2018-09-22 18:51 | RAD ---
PORTABLE CHEST 1 VIEW: Date: 09/22/18 Time: 1826 hours HISTORY: Follicular lymphoma. FINDINGS: Comparison made with exam of 02/26/17. The heart is enlarged. The aorta is tortuous. The lungs are expanded without focal areas of consolida tion, pneumothoraces, cholo pulmonary edema, or pleural effusions. There are postop changes of right rotator cuff repair. IMPRESSION: No acute process. POS: [facility]
--- NOTE | 2018-09-22 19:37 | CT ---
CT left thigh with contrast: DATE: 09/22/2018 HISTORY: 83-year-old female with left lower extremity pain and swelling. FINDINGS: There is a large 175 x 76.5 x 62 cm soft tissue density mildly heterogeneously enhancing mass in the posterior compartment of the thigh, within and peripherally displacing the hamstring muscles. There is diffuse superficial circumferential soft tissue edema. No periostitis, permeative lesion, or fract ure of the femur. IMPRESSION: 1. Very large tumor mass in the posterior compartment of the thigh. 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 2. Diffuse circumferential soft tissue edema throughout the thigh, especially superficially.
[2018-09-22] MEDS ORDERED: Morphine 4 MG/ML VIAL SLOW IVP PRN (21:08)
[2018-09-22] MEDS ORDERED: Ondansetron PF 4 MG/2 ML Vial SLOW IVP PRN (21:10)
[2018-09-22] MEDS ORDERED: Acetaminophen 325 MG TAB PO PRN (21:10)
[2018-09-22] MEDS ORDERED: Potassium Chloride 10 MEQ TAB PO SCH (21:15)
[2018-09-22 21:33] VITALS: BMI 26.4
[2018-09-22] MEDS: Potassium Chloride 10 MEQ TAB PO SCH (22:15)
--- NOTE | 2018-09-22 22:24 | HP ---
CHIEF COMPLAINT: Left leg cellulitis and tumor. HISTORY OF PRESENT ILLNESS: The patient is an 83-year-old female, who has been having left leg pain for quite some time. X-rays were taken way back in the middle of August, looking for arthritis changes in the knee and tib-fib. These areas returned normal. She continued to have swelling and pain in that leg. She came to the emergency room prior to this, where D-dimer was obtained and ultrasounds that did not show DVT. Actually left hip x-ray was taken back in June, again showing arthritis. When her pain began to go down both legs, a lumbar spine MRI was obtained last week and it showed abnormal marrow signal characterized at S2 and a whole-body bone scan was then ordered. There was some foraminal narrowing on the left noted at L5-S1, the whole-body bone scan had not yet been obtained. When she came into the emergency room the night of admission, white count was noted to be elevated at 15,000. CT of the left lower extremity showed a large tumor mass in the posterior compartment of the thigh. There is circumferential edema noted as well. On the basis of these findings, and elevated white count and early cellulitis, she is being admitted. PAST MEDICAL HISTORY: Significant for lymphoma. She is undergoing chemotherapy currently. She has also got hypothyroidism, hypertension. Her prior heart history includes congestive heart failure, hyperlipidemia. She also has significant anxiety, for which she takes Xanax; and osteopenia, for which she takes Fosamax. PAST SURGICAL HISTORY: Includes hysterectomy, left ankle orthopedic surgery, right knee replacement. PSYCHIATRIC HISTORY: Significant for depression and the aforementioned anxiety. SOCIAL HISTORY: She is , lives with her daughter and granddaughter. Drinks socially. Denies smoking or drug use. ALLERGIES: TETRACYCLINES. MEDICATIONS: On admission include; 1. Bystolic 10 mg daily. 2. Hydralazine 50 mg t.i.d. 3. Lasix 20 mg q.a.m. 4. Norvasc 10 mg daily. 5. Levothyroxine 88 mcg daily. 6. Zoloft 50 mg daily. 7. Xanax 0.25 mg p.r.n. 8. Fosamax 70 mg q.week. REVIEW OF SYSTEMS: GENERAL: Significant for general weakness and pain in her left leg. She has had general malaise as well. HEENT: Denies fever, drainage or sores in her face and sinuses. CHEST: Denies shortness of breath, dyspnea, or cough. CARDIOVASCULAR: Denies palpitations or chest pain. ABDOMEN: Denies nausea, vomiting, or diarrhea. : Denies burning on urination, blood in urine or stool. MUSCULOSKELETAL: Significant for left hip and left leg pain, edema and tenderness especially with use. SKIN: No acute rashes or lesions. NEUROLOGIC: Denies headaches, hypesthesia, or anesthesia. PHYSICAL EXAMINATION: VITAL SIGNS: On admission, blood pressure was 173/53, pulse 77, respirations 18 , temperature 97.9, 97% O2 saturation on room air. Pain scale is 3/10 after having had morphine. GENERAL: This is a well-developed, well-nourished, elderly female, alert, oriented, and cooperative. HEENT: Normocephalic, atraumatic. Pupils are equal, round, and reactive to light with arcus senilis bilaterally. TMs, nares, and pharynx are clear. NECK: Supple. Trachea midline. CHEST: Clear to auscultation. HEART: Regular rate and rhythm. BREASTS: Deferred. ABDOMEN: Soft, nontender without hepatosplenomegaly. : Deferred. EXTREMITIES: Shows swelling and tenderness of the left leg, especially tender and swollen up in the thigh area. Pain with palpation and standing. Right lower extremity and upper extremities were without clubbing, cyanosis, or edema. Normal range of motion. SKIN: Shows heat and mild erythema in the area of cellulitis of the left thigh. NEUROLOGIC: Cranial nerves are intact. Unable to test gait and cerebellar function at this time. Sensory exam is grossly intact. Mental status is baseline. LABORATORY DATA: WBCs 15.2, hemoglobin 12.6, hematocrit 36.7 with platelets of 249. Sodium 138, potassium 3.4, chloride 101, CO2 22, BUN 32, creatinine 1.24 with a GFR of 41, glucose of 115, lactic acid elevated at 3.9, calcium elevated at 11.5. Liver functions unremarkable. BNP slightly elevated at 391. Chest x-ray is clear. CT of the left leg shows very large tumor mass in the posterior compartment of the thigh. Differential circumferential soft tissue edema as well throughout the thigh, especially superficially. ASSESSMENT: 1. Left leg cellulitis. 2. Left leg tumor. 3. Lymphoma. 4. Hypertension. 5. Generalized anxiety disorder. PLAN: IV antibiotics, IV pain medications. Surgical consultation concerning the tumor mass and serial re-evaluation. Job ID: [id number] [id number]
[2018-09-22 22:38] LABS: Lactic Acid 4.8 mmol/L (0.5-2.2)
[2018-09-22] MEDS: Piperacillin/Tazobactam 3.375 GM in Sodium Chloride 0.9% 100 ML IVPB SCH (23:06)
[2018-09-23] MEDS: Zolpidem Tartrate 5 MG TAB PO PRN ×2 (00:08→23:05)
[2018-09-23 05:03] LABS: #Eosinphils 0.8 thou/uL (0.0-0.7); #Lymphocytes 0.7 thou/uL (1.20-3.40); #Monocytes 1.3 thou/uL (0.11-0.59); #Neutrophils 8.3 thou/uL (1.40-6.50); %Basophils 0.2 % (0.0-1.0); %Eosinophils 7.2 % (0.0-10.0); %Lymphocytes 6.6 % (21.0-51.0); %Monocytes 11.9 % (0.0-10.0); %Neutrophils 74.1 % (42.0-75.0); Hemoglobin 11.4 g/dL (12.0-16.0); Mean Corpuscular HGB CONC 33.8 g/dL (32.0-36.0); Mean Corpuscular Hemoglobin 29.7 pg (27.0-31.0); Mean Corpuscular Volume 87.9 fL (78.0-98.0); Mean Platelet Volume 7.5 fL (7.4-10.4); Platelet Count 244 thou/uL (130-400); RBC Distribution Width 12.4 % (11.5-14.5); Red Blood Cell (RBC) Count 3.83 mill/uL (4.20-5.40); White Blood Cell (WBC) Count 11.2 thou/uL (4.8-10.8)
[2018-09-23 05:25] LABS: Anion Gap 18 mmol/L (10-20); BUN (Urea Nitrogen) 27 mg/dL (9.8-20.1); Calc. Creatinine Clearance 45 mL/min (70-130); Calcium 10.4 mg/dL (7.8-10.44); Carbon Dioxide 22 mmol/L (23-31); Chloride 103 mmol/L (98-107); Estimated GFR-MDRD 56; Glucose 87 mg/dL (83-110); Potassium 3.3 mmol/L (3.5-5.1); Sodium 140 mmol/L (136-145)
[2018-09-23] MEDS: Levothyroxine Sodium 88 MCG TAB PO SCH (05:48)
[2018-09-23] MEDS: Piperacillin/Tazobactam 3.375 GM in Sodium Chloride 0.9% 100 ML IVPB SCH ×4 (05:50→23:49)
[2018-09-23] MEDS: hydrALAZINE 25 MG TAB PO SCH ×3 (08:39→21:55)
[2018-09-23] MEDS: Nebivolol HCl 5 MG TAB PO SCH (08:40)
[2018-09-23] MEDS: Amlodipine 10 MG TAB PO SCH (08:40)
[2018-09-23] MEDS: Potassium Chloride 10 MEQ TAB PO SCH (08:40)
[2018-09-23] MEDS: HYDROcodone/Acetaminophen 5/325 mg Tablet PO PRN ×2 (14:48→21:54)
[2018-09-23] MEDS ORDERED: hydrALAZINE 25 MG TAB ONE (22:00)
[2018-09-24] MEDS: HYDROcodone/Acetaminophen 5/325 mg Tablet PO PRN (03:33)
[2018-09-24] MEDS: Levothyroxine Sodium 88 MCG TAB PO SCH (06:28)
[2018-09-24] MEDS: Piperacillin/Tazobactam 3.375 GM in Sodium Chloride 0.9% 100 ML IVPB SCH (06:29)
[2018-09-24 06:32] LABS: #Eosinphils 0.7 thou/uL (0.0-0.7); #Lymphocytes 0.8 thou/uL (1.20-3.40); #Monocytes 1.2 thou/uL (0.11-0.59); #Neutrophils 9.1 thou/uL (1.40-6.50); %Basophils 0.3 % (0.0-1.0); %Eosinophils 6.3 % (0.0-10.0); %Lymphocytes 6.4 % (21.0-51.0); %Monocytes 9.9 % (0.0-10.0); Hemoglobin 11.7 g/dL (12.0-16.0); Mean Corpuscular HGB CONC 34.6 g/dL (32.0-36.0); Mean Corpuscular Hemoglobin 30.3 pg (27.0-31.0); Mean Corpuscular Volume 87.5 fL (78.0-98.0); Mean Platelet Volume 7.3 fL (7.4-10.4); Platelet Count 239 thou/uL (130-400); RBC Distribution Width 12.3 % (11.5-14.5); Red Blood Cell (RBC) Count 3.87 mill/uL (4.20-5.40); White Blood Cell (WBC) Count 11.8 thou/uL (4.8-10.8)
[2018-09-24 07:17] VITALS: BP 162/63; TEMP 97.9
[2018-09-24] MEDS: Nebivolol HCl 5 MG TAB PO SCH (08:19)
[2018-09-24] MEDS: Amlodipine 10 MG TAB PO SCH (08:19)
[2018-09-24] MEDS: hydrALAZINE 25 MG TAB PO SCH (08:19)
[2018-09-24] MEDS: Potassium Chloride 10 MEQ TAB PO SCH (08:20)
== END 2018-09-24 10:20 | disposition home or self-care (01) | DRG 603 ==
LOC: ERS 13:55 → T4-A 18:42
PROVIDERS: ADMIT Specialist; ATTEND Specialist
DX: L03.116 Cellulitis of left lower limb (principal); C85.90 Non-Hodgkin lymphoma, unspecified, unspecified site; D49.89 Neoplasm of unspecified behavior of other specified sites; E03.9 Hypothyroidism, unspecified; I50.9 Heart failure, unspecified; E78.5 Hyperlipidemia, unspecified; F32.9 Major depressive disorder, single episode, unspecified; F41.1 Generalized anxiety disorder; I11.0 Hypertensive heart disease with heart failure; Z96.651 Presence of right artificial knee joint; Z90.710 Acquired absence of both cervix and uterus; Z88.1 Allergy status to other antibiotic agents; Z79.899 Other long term (current) drug therapy
CPT/HCPCS: 36415; 71045; 80048; 80053; 80156; 83605; 83880; 84443; 85025; 87040; 96365; 96375; J2270; J2405; J2543; J3370; J3490; Q9966

== ENCOUNTER 2018-10-03 10:57 | Inpatient (IN) | payer MEDICARE, MEDICAID ==
[2018-10-03 11:59] LABS: #Lymphocytes 0.7 thou/uL (1.20-3.40); #Monocytes 1.5 thou/uL (0.11-0.59); #Neutrophils 12.9 thou/uL (1.40-6.50); %Basophils 0.3 % (0.0-1.0); %Eosinophils 6.4 % (0.0-10.0); %Lymphocytes 4.1 % (21.0-51.0); %Monocytes 9.5 % (0.0-10.0); %Neutrophils 79.9 % (42.0-75.0); Hemoglobin 12.9 g/dL (12.0-16.0); Mean Corpuscular HGB CONC 34.1 g/dL (32.0-36.0); Mean Corpuscular Volume 88.2 fL (78.0-98.0); Platelet Count 323 thou/uL (130-400); RBC Distribution Width 13.8 % (11.5-14.5); White Blood Cell (WBC) Count 16.1 thou/uL (4.8-10.8)
[2018-10-03 12:21] LABS: ALT (SGPT) 31 U/L (8-55); AST (SGOT) 57 U/L (5-34); Albumin 3.5 g/dL (3.4-4.8); Alkaline Phosphatase 62 U/L (40-150); Anion Gap 21 mmol/L (10-20); BUN (Urea Nitrogen) 45 mg/dL (9.8-20.1); Bilirubin, Total 0.5 mg/dL (0.2-1.2); CK (CPK) 1023 U/L (29-168); Calc. Creatinine Clearance 0 mL/min (70-130); Calcium 10.8 mg/dL (7.8-10.44); Carbon Dioxide 18 mmol/L (23-31); Chloride 99 mmol/L (98-107); Estimated GFR-MDRD 40; Globulin 1.7 g/dL (2.4-3.5); Glucose 65 mg/dL (83-110); Potassium 4.3 mmol/L (3.5-5.1); Protein, Total 5.2 g/dL (6.0-8.3); Sodium 134 mmol/L (136-145); Uric Acid 17.9 mg/dL (2.6-6.0)
--- NOTE | 2018-10-03 12:34 | ULT ---
Venous duplex sonogram left lower extremity HISTORY: Left leg pain and edema. FINDINGS: Internal echoes and incomplete compressibility of the popliteal vein and posterior tibial v ein. Diminished color and spectral Doppler flow. The left common femoral vein and greater saphenous junction, deep femoral and femoral vein show good color and spectral Doppler flow and compression. IMPRESSION: Positive exam. Incompletely occlusive thrombus within the left popliteal vein and posteri or tibial vein.
[2018-10-03] MEDS ORDERED: Enoxaparin Sodium 80 MG/0.8 ML SYRINGE ONE (13:22)
[2018-10-03 16:02] LABS: Lactic Acid 6.7 mmol/L (0.5-2.2)
[2018-10-03] MEDS ORDERED: HYDROcodone/Acetaminophen 5/325 mg Tablet ONE (21:04)
[2018-10-03] MEDS ORDERED: Ondansetron PF 4 MG/2 ML Vial ONE (21:04)
[2018-10-03] MEDS ORDERED: Acetaminophen 325 MG TAB PO PRN (22:32)
[2018-10-03] MEDS ORDERED: Sodium Chloride 0.9% 1,000 ML IV SCH (22:32)
[2018-10-03] MEDS ORDERED: Ondansetron PF 4 MG/2 ML Vial IVP PRN (22:32)
[2018-10-03] MEDS ORDERED: HYDROcodone/Acetaminophen 5/325 mg Tablet PO PRN ×2 (22:32)
[2018-10-03] MEDS ORDERED: Ondansetron ODT 4 MG TAB SL PRN (22:32)
[2018-10-03 22:38] VITALS: BMI 24.3
[2018-10-04 07:46] LABS: INR-International Normal Ratio 1.1; PTT 35.9 SEC (22.9-36.1); Prothrombin Time 14.2 SEC (12.0-14.7)
[2018-10-04] MEDS: Nebivolol HCl 5 MG TAB PO SCH (08:54)
[2018-10-04] MEDS: ALPRAZolam 0.25 MG TAB PO SCH (08:54)
[2018-10-04] MEDS: Amlodipine 10 MG TAB PO SCH (08:55)
[2018-10-04] MEDS: Lisinopril 20 MG TAB PO SCH ×2 (08:55→19:14)
[2018-10-04] MEDS: Vancomycin HCl 1 GM in Premix Bag 1 BAG IVPB SCH ×2 (08:56→20:19)
[2018-10-04] MEDS: Sodium Chloride 0.9% 1,000 ML IV SCH ×3 (08:56→20:35)
[2018-10-04] MEDS ORDERED: Midazolam HCl 2 mg/2 ml Vial ONE (10:01)
[2018-10-04] MEDS ORDERED: Sodium Bicarbonate 2.5 MEQ/5 ML VIAL ONE (10:01)
[2018-10-04] MEDS ORDERED: Fentanyl 100 MCG/2 ML VIAL ONE (10:01)
[2018-10-04] MEDS: Piperacillin/Tazobactam 3.375 GM in Sodium Chloride 0.9% 100 ML IVPB SCH ×2 (12:58→17:50)
[2018-10-04] MEDS: Apixaban 5 MG TAB PO SCH ×2 (12:59→20:19)
--- NOTE | 2018-10-04 13:33 | CT ---
CT-guided left leg soft tissue mass biopsy INDICATION: History of lymphoma with a lytic lesion involving the distal femur with large periosseous soft tissue mass TECHNIQUE: Informed consent was obtained. Preprocedure basketball scout images were obtained of the left leg for guidance purposes only. There is extensive erythema involving the thigh; therefore, sampling of the lateral and distal most extent of the soft tissue mass through nonerythematous skin was performed . Site overlying the distal lateral left thigh was marked. Site was prepped and draped in the usual sterile fashion. One percent lidocaine was measured overlying subcutaneous tissues. Under CT fluorosc opic guidance, a 17-gauge trocar needle was guided down into the large soft tissue mass of the distal lateral left thigh. 3 separate core samples were obtained. One core sample was submitted to [facility] pathology department utilizing RPMI solution. 2 core samples were submitted utilizing a formalin solution. Pressure was held at the biopsy site until hemostasis was obtained. The site was then clean sed and bandage. The patient tolerated the procedure without difficulty. IMPRESSION: Successful CT-guided left leg is soft tissue mass biopsy.
--- NOTE | 2018-10-04 19:43 | CON ---
DATE OF CONSULTATION: REASON FOR CONSULT: Leg sarcoma. HISTORY OF PRESENT ILLNESS: The patient is an 83-year-old female with a past medical history of follicular lymphoma, who was recently diagnosed with a large left thigh mass worrisome for sarcoma. She has been unable to walk for several weeks. She has been in the ER for pain. Last week, she presented to the [facility] ER for sarcoma. They had no room available and the patient left without being admitted. She saw Dr. Ivey on September 26 and was referred to [facility], they were awaiting an outpatient visit when she presented to the emergency room here with pain. The patient underwent a vascular ultrasound, which was positive for nonocclusive DVT of the left popliteal vein. She has undergone a biopsy of her soft tissue mass. Her pain has been managed with morphine. PAST MEDICAL HISTORY: 1. Follicular lymphoma. 2. Hypertension. 3. Diastolic dysfunction. 4. Hyperlipidemia. PAST SURGICAL HISTORY: 1. Hysterectomy. 2. Jaw surgery. 3. Hip fracture repair. ALLERGIES: NO KNOWN DRUG ALLERGIES. HOME MEDICATIONS: 1. Sotalol 50 mg daily. 2. Livalo 4 mg daily. 3. Levothyroxine 88 mcg daily. 4. Hydrocodone 10/325 p.r.n. 5. Lasix 20 mg daily. 6. Bystolic 5 mg daily. 7. Amlodipine. 8. Benazepril 40 daily. FAMILY HISTORY: No history of blood disorder or malignancy. SOCIAL HISTORY: , has 4 children. Lives with her spouse. No alcohol, tobacco, or illicit drug use. REVIEW OF SYSTEMS: Positive for leg pain and cough. Otherwise, negative. PHYSICAL EXAMINATION: VITAL SIGNS: Temperature is 98.5, pulse is 65, respiratory rate is 16, BP is 103/55. She is 98% on room air. GENERAL: This is a well-developed, well-nourished female, in no acute distress. HEENT: Normocephalic and atraumatic. Pupils are equal and reactive to light. NECK: Supple. CV: Regular rate and rhythm. LUNGS: Clear anterior. ABDOMEN: Soft. Bowel sounds are positive. EXTREMITIES: She has swelling of her left lower extremity. SKIN: No rash. HEMATOLOGICAL: No petechiae or purpura. NEUROLOGIC: Nonfocal. PERTINENT LABORATORY DATA AND X-RAYS: Current WBCs are 16.1, hemoglobin 12.9, hematocrit 38, platelet count is 323,000, 79% neutrophils, 4% lymphocytes. PT is 14.2, INR is 1.1, and PTT is 35.9. Sodium is 134, potassium 4.3, chloride 99, CO2 is 18, BUN is 45, creatinine 1.28, lactic acid 6.7, uric acid is 17.9, calcium 10.8, bilirubin 0.5, AST is 57, ALT is 31, alkaline phosphatase is 62. Creatine kinase is 1023. Serum total protein 5.2, albumin 3.9, globulin 1.7. ASSESSMENT: 1. 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 2. Left lower extremity deep venous thrombosis. DISCUSSION: The patient has been started on anticoagulation and given pain medicine, her pain is now adequately controlled. Dr. Ivey has spoke with the [facility] and we have initiated transfer down there. My understanding is they have accepted the patient and she should be transferred when a bed is available. She will follow up with us in the outpatient setting and we can treat her based on the recommendations. This has been discussed at length with the family and patient and they are in agreement. Thank you for the consult. Job ID: [id number]
[2018-10-05] MEDS: Piperacillin/Tazobactam 3.375 GM in Sodium Chloride 0.9% 100 ML IVPB SCH ×5 (00:56→23:41)
[2018-10-05] MEDS: HYDROcodone/Acetaminophen 5/325 mg Tablet PO PRN (01:48)
[2018-10-05] MEDS ORDERED: Levothyroxine Sodium 75 MCG TAB PO SCH (06:00)
[2018-10-05 06:08] LABS: #Eosinphils 1.6 thou/uL (0.0-0.7); #Lymphocytes 0.4 thou/uL (1.20-3.40); #Neutrophils 8.6 thou/uL (1.40-6.50); %Basophils 0.2 % (0.0-1.0); %Eosinophils 13.8 % (0.0-10.0); %Lymphocytes 3.7 % (21.0-51.0); %Monocytes 8.5 % (0.0-10.0); %Neutrophils 73.9 % (42.0-75.0); Hemoglobin 10.5 g/dL (12.0-16.0); Mean Corpuscular HGB CONC 34.3 g/dL (32.0-36.0); Mean Corpuscular Hemoglobin 30.9 pg (27.0-31.0); Mean Corpuscular Volume 90.2 fL (78.0-98.0); Platelet Count 272 thou/uL (130-400); RBC Distribution Width 13.7 % (11.5-14.5); Red Blood Cell (RBC) Count 3.41 mill/uL (4.20-5.40); White Blood Cell (WBC) Count 11.7 thou/uL (4.8-10.8)
[2018-10-05 06:29] LABS: Anion Gap 17 mmol/L (10-20); BUN (Urea Nitrogen) 46 mg/dL (9.8-20.1); CK (CPK) 458 U/L (29-168); Calc. Creatinine Clearance 46 mL/min (70-130); Calcium 10.2 mg/dL (7.8-10.44); Carbon Dioxide 18 mmol/L (23-31); Chloride 106 mmol/L (98-107); Estimated GFR-MDRD 57; Glucose 63 mg/dL (83-110); Potassium 4.5 mmol/L (3.5-5.1); Sodium 136 mmol/L (136-145)
[2018-10-05] MEDS: ALPRAZolam 0.25 MG TAB PO SCH (09:42)
[2018-10-05] MEDS: Amlodipine 10 MG TAB PO SCH (09:42)
[2018-10-05] MEDS: Apixaban 5 MG TAB PO SCH ×2 (09:42→20:07)
[2018-10-05] MEDS: Lisinopril 20 MG TAB PO SCH ×2 (09:48→19:58)
[2018-10-05] MEDS: Nebivolol HCl 5 MG TAB PO SCH (09:48)
[2018-10-05] MEDS: Vancomycin HCl 1 GM in Premix Bag 1 BAG IVPB SCH (09:49)
[2018-10-05] MEDS: Sodium Chloride 0.9% 1,000 ML IV SCH ×2 (09:50→20:08)
--- NOTE | 2018-10-05 12:15 | HP ---
CHIEF COMPLAINT: Left leg pain. Left leg tumor, itching. HISTORY OF PRESENT ILLNESS: The patient is an 83-year-old female, who came into the ER complaining of itching. She had a diagnosis of a tumor in her left thigh 3 weeks ago and had planned to go to [place] to have that treated hopefully by a sarcoma surgeon; however, [facility] has not provided an avenue of access for that to happen referring her back for a diagnosis first, and the patient is now having severe pain such that she cannot walk. She rates her pain at a 10/10, and they are constant. On top of that, she has been scratching and itching. The patient has seen Dr. Ivey here, who has arranged an outpatient appointment at [facility]. However, the patient's pain, discomfort, and itching had overwhelmed her to the point she came to the emergency room for this admission. She was noted on vascular ultrasound to be positive for nonocclusive DVT in the left popliteal vein, and she requires morphine to manage her pain. PAST MEDICAL HISTORY: Significant for history of lymphoma, hypothyroidism, hypertension. She has a history of heart disease with congestive heart failure, hyperlipidemia. She has a significant anxiety component and has osteopenia. PAST SURGICAL HISTORY: Includes hysterectomy, left ankle surgery, right knee replacement. SOCIAL HISTORY: She lives in her home with her daughter and granddaughter. She is , retired. Does not smoke or drink alcoholic beverages. ALLERGIES: MORPHINE (PRESERVATIVE) AND TETRACYCLINE. MEDICATIONS: Her medications on admission include, 1. Livalo 4 mg a day. 2. Levothyroxine 75 mcg daily. 3. Lasix 20 mg daily 4. Amlodipine 10 mg daily. 5. Xanax 0.25 mg q.a.m. 6. She has most recently been started on sertraline 50 mg at bedtime. 7. She also takes benazepril p.o. b.i.d. REVIEW OF SYSTEMS: CONSTITUTIONAL: At the time of admission, the patient denies fever or chills, but she does have general malaise and weakness. HEENT: Denies drainage or pain in ears, nose, or throat. CHEST: Denies cough or shortness of breath. CARDIOVASCULAR: Denies palpitations or chest pain. GI: Denies nausea, vomiting, or diarrhea. : Denies dysuria or blood in urine or stool. MUSCULOSKELETAL: Significant for the horrible left leg pain. SKIN: Significant for diffuse itching and rash, history of cellulitis for which she has been receiving antibiotics. HEMOLYTIC/LYMPH: She has had swelling in the left leg. NEUROLOGIC: Denies headaches or trouble with mentation. PHYSICAL EXAMINATION: At the time of admission, VITAL SIGNS: Blood pressure 144/44, pulse 76, respirations 18, pain scale 10/10 , O2 saturation 99% on room air. GENERAL: This is a well-developed, well-nourished, elderly female, alert, oriented, and cooperative. HEENT: Normocephalic, atraumatic. Pupils are equal, round, and reactive to light at 1 to 2 mm each with arcus senilis bilaterally. TMs, nares, and pharynx are clear. NECK: Supple. Trachea midline. CHEST: Clear to auscultation. BREASTS: Deferred. HEART: Regular rate and rhythm without murmur. ABDOMEN: Soft, nontender without organomegaly. : Deferred. EXTREMITIES: Left lower extremity with swelling, edema, heat, and tenderness in the left proximal thigh. Right lower extremity and upper extremities are normal. SKIN: With ecchymosis and swelling and heat to the left upper thigh. NEUROLOGICAL: Cranial nerves are intact. Sensory exam is grossly intact. Unable to test gait and cerebellar function at this time. Mental status is at baseline. LABORATORY DATA: The lab work obtained thus far shows WBCs initially 16.1 with hemoglobin 12.9, hematocrit 38, and platelets are 323. Sodium 134, potassium 4.3, chloride 99, CO2 of 18, BUN 45, creatinine 1.28 with a GFR of 40, glucose 65. Lactic acid initially 5.8, went up to 6.7. Uric acid severely elevated at 17.9. Uric calcium elevated at 10.8. Liver functions unremarkable. CK elevated. TSH elevated at 8.13. ASSESSMENT: 1. Left thigh mass. 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 Popliteal deep vein thrombosis, left leg. 3. Left thigh cellulitis. 4. Hypothyroidism. PLAN: Blood cultures, IV antibiotics, CT-guided needle biopsy of the left thigh mass. Consultation with Oncology, and transfer of care with diagnosis to [facility] for ultimately a sarcoma surgeon to treat this mass and pain management that will be our focus, and serially re-evaluating the patient. Job ID: [id number] [facility]
[2018-10-05] MEDS ORDERED: Fleet Enema 133 ML BOT PR SCH (14:45)
[2018-10-05] MEDS: Docusate 100 MG CAP PO SCH (20:07)
[2018-10-05 20:39] LABS: Vancomycin, Trough 36.8 ug/mL
[2018-10-06] MEDS: HYDROcodone/Acetaminophen 5/325 mg Tablet PO PRN ×2 (02:05→20:54)
[2018-10-06] MEDS: Sodium Chloride 0.9% 1,000 ML IV SCH ×4 (04:43→19:50)
[2018-10-06] MEDS: Levothyroxine Sodium 100 MCG TAB PO SCH (04:44)
[2018-10-06] MEDS: Piperacillin/Tazobactam 3.375 GM in Sodium Chloride 0.9% 100 ML IVPB SCH ×4 (04:44→22:18)
[2018-10-06 05:28] LABS: #Eosinphils 1.9 thou/uL (0.0-0.7); #Lymphocytes 0.7 thou/uL (1.20-3.40); #Monocytes 1.4 thou/uL (0.11-0.59); %Basophils 0.1 % (0.0-1.0); %Eosinophils 13.7 % (0.0-10.0); %Lymphocytes 4.7 % (21.0-51.0); %Monocytes 9.9 % (0.0-10.0); %Neutrophils 71.6 % (42.0-75.0); Hemoglobin 10.8 g/dL (12.0-16.0); Mean Corpuscular HGB CONC 33.1 g/dL (32.0-36.0); Mean Corpuscular Hemoglobin 30.1 pg (27.0-31.0); Mean Corpuscular Volume 90.7 fL (78.0-98.0); Mean Platelet Volume 7.2 fL (7.4-10.4); Platelet Count 268 thou/uL (130-400); Red Blood Cell (RBC) Count 3.58 mill/uL (4.20-5.40); White Blood Cell (WBC) Count 13.9 thou/uL (4.8-10.8)
[2018-10-06 05:52] LABS: Anion Gap 19 mmol/L (10-20); BUN (Urea Nitrogen) 46 mg/dL (9.8-20.1); Calc. Creatinine Clearance 43 mL/min (70-130); Carbon Dioxide 15 mmol/L (23-31); Chloride 107 mmol/L (98-107); Estimated GFR-MDRD 53; Glucose 75 mg/dL (83-110); Potassium 4.2 mmol/L (3.5-5.1); Sodium 137 mmol/L (136-145)
[2018-10-06] MEDS: ALPRAZolam 0.25 MG TAB PO SCH (07:37)
[2018-10-06] MEDS: Docusate 100 MG CAP PO SCH ×2 (07:37→19:49)
[2018-10-06] MEDS: Apixaban 5 MG TAB PO SCH ×2 (07:37→19:49)
[2018-10-06] MEDS: Amlodipine 10 MG TAB PO SCH (07:38)
[2018-10-06] MEDS: Lisinopril 20 MG TAB PO SCH ×2 (07:38→19:49)
[2018-10-06] MEDS: Nebivolol HCl 5 MG TAB PO SCH (07:39)
--- NOTE | 2018-10-06 11:59 | PDOC.MOPN ---
Interval History: her pain is well controlled, she is very clear that she does not want to go to [facility], she does not want to be alone. she wants to stay here - Vital Signs Vital Signs: Vital Signs (12 hours) Temp Pulse Resp BP BP Pulse Ox 10/06/18 11:45 98.7 F 65 18 112/62 98 10/06/18 08:00 97 10/06/18 07:38 62 114/64 10/06/18 07:30 97.8 F 62 20 114/64 97 10/06/18 05:46 97.7 F 65 16 102/56 L 97 Weight Weight 146 lb 4.8 oz - Physical Exam General: Alert HEENT: Atraumatic Lungs: Clear to auscultation Cardiovascular: Regular rate Abdomen: Normal bowel sounds, Soft Extremities: Other (LLE is erythematous medially, 2-3+ edema in the leg) Psych/Mental Status: Mental status NL - Labs Result Diagrams: 10/06/18 04:30 10/06/18 04:30 Lab results: Laboratory Results - last 24 hr 10/06/18 04:30: WBC 13.9 H, RBC 3.58 L, Hgb 10.8 L, Hct 32.5 L, MCV 90.7, MCH 30.1, MCHC 33.1, RDW 14.0, Plt Count 268, MPV 7.2 L, Neutrophils % 71.6, Lymphocytes % 4.7 L, Monocytes % 9.9, Eosinophils % 13.7 H, Basophils % 0.1, Neutrophils # 10.0 H, Lymphocytes # 0.7 L, Monocytes # 1.4 H, Eosinophils # 1.9 H, Basophils # 0.0 10/06/18 04:30: Sodium 137, Potassium 4.2, Chloride 107, Carbon Dioxide 15 L, Anion Gap 19, BUN 46 H, Creatinine 1.00, Estimated GFR (MDRD) 53, Glucose 75 L, Calcium 10.0 10/05/18 20:02: Vancomycin Trough 36.8 H* - Pathology Pathology: pending, biopsy on Sunday A/P - Problem (1) Sarcoma of lower extremity Current Visit: Yes Code(s): C49.20 - MALIG NEOPLM OF CONN AND SOFT TISS OF UNSP LOW LIMB, INC HIP Status: Acute (2) DVT (deep venous thrombosis) Current Visit: Yes Code(s): I82.409 - ACUTE EMBOLISM AND THOMBOS UNSP DEEP VN UNSP LOWER EXTREMITY Status: Acute - Plan Plan: 1. continue anticoagulation 2. pain control 3. cancel transfer to [facility] 4. she understands this is incurable, we might be able to palliate her with radiation, discuss with rad onc next week 5. JULIÁNR
--- NOTE | 2018-10-06 12:08 | PDOC.FMACP ---
Advance Care Planning - Problem (1) Sarcoma of lower extremity Status: Acute Code(s): C49.20 - MALIG NEOPLM OF CONN AND SOFT TISS OF UNSP LOW LIMB, INC HIP (2) DVT (deep venous thrombosis) Status: Acute Code(s): I82.409 - ACUTE EMBOLISM AND THOMBOS UNSP DEEP VN UNSP LOWER EXTREMITY - Note Participants: patient, family (we had a long discussion about the goals of care. they understand this is not curable and all treatment is palliative. she agrees as does her family, she would like to be a DNAR) Summary: Advanced Care Planning was discussed. The diagnosis, prognosis and goals of care were discussed. Appropriate forms and documentation to accomplish the goals of care were discussed. All questions were answered. The Palliative Care Team will be engaged to assist with completion of any outstanding forms that are needed.
[2018-10-06 20:25] LABS: Vancomycin, Trough 22.9 ug/mL
[2018-10-06] MEDS ORDERED: Zolpidem Tartrate 5 MG TAB PO PRN (22:12)
[2018-10-07] MEDS: Sodium Chloride 0.9% 1,000 ML IV SCH ×3 (04:34→19:55)
[2018-10-07] MEDS: Piperacillin/Tazobactam 3.375 GM in Sodium Chloride 0.9% 100 ML IVPB SCH ×4 (04:55→23:15)
[2018-10-07] MEDS: Levothyroxine Sodium 100 MCG TAB PO SCH (04:56)
[2018-10-07 05:09] LABS: #Lymphocytes 0.6 thou/uL (1.20-3.40); #Monocytes 1.3 thou/uL (0.11-0.59); %Basophils 0.1 % (0.0-1.0); %Eosinophils 14.5 % (0.0-10.0); %Lymphocytes 4.5 % (21.0-51.0); %Monocytes 9.3 % (0.0-10.0); %Neutrophils 71.7 % (42.0-75.0); Hemoglobin 10.8 g/dL (12.0-16.0); Mean Corpuscular HGB CONC 33.4 g/dL (32.0-36.0); Mean Corpuscular Hemoglobin 30.5 pg (27.0-31.0); Mean Corpuscular Volume 91.3 fL (78.0-98.0); Mean Platelet Volume 7.3 fL (7.4-10.4); Platelet Count 283 thou/uL (130-400); RBC Distribution Width 14.1 % (11.5-14.5); Red Blood Cell (RBC) Count 3.53 mill/uL (4.20-5.40)
[2018-10-07 05:30] LABS: Anion Gap 19 mmol/L (10-20); BUN (Urea Nitrogen) 43 mg/dL (9.8-20.1); Calc. Creatinine Clearance 44 mL/min (70-130); Calcium 10.6 mg/dL (7.8-10.44); Carbon Dioxide 14 mmol/L (23-31); Chloride 108 mmol/L (98-107); Estimated GFR-MDRD 54; Glucose 70 mg/dL (83-110); Potassium 4.2 mmol/L (3.5-5.1); Sodium 137 mmol/L (136-145)
[2018-10-07 08:41] LABS: Vancomycin, Random 18.7 ug/mL (See Comment)
[2018-10-07] MEDS: Vancomycin HCl 1 GM in Premix Bag 1 BAG IVPB SCH ×2 (12:13→15:56)
[2018-10-07] MEDS: Amlodipine 10 MG TAB PO SCH (12:17)
[2018-10-07] MEDS: Lisinopril 20 MG TAB PO SCH ×2 (12:17→19:53)
[2018-10-07] MEDS: Docusate 100 MG CAP PO SCH ×2 (12:17→19:53)
[2018-10-07] MEDS: Apixaban 5 MG TAB PO SCH ×2 (12:18→19:53)
[2018-10-07] MEDS: Nebivolol HCl 5 MG TAB PO SCH (12:18)
[2018-10-07] MEDS: ALPRAZolam 0.25 MG TAB PO SCH ×2 (12:20→20:00)
--- NOTE | 2018-10-07 12:21 | PDOC.MOPN ---
Interval History: more sedated today, a little confused - Vital Signs Vital Signs: Vital Signs (12 hours) Temp Pulse Resp BP Pulse Ox 10/07/18 11:25 97.8 F 65 20 139/56 L 94 L 10/07/18 08:07 97.4 F L 66 16 123/56 L 93 L 10/07/18 04:00 98.1 F 69 16 131/56 L 92 L Weight Weight 146 lb 4.8 oz - Physical Exam General: Other (sleeping) HEENT: Atraumatic Lungs: Clear to auscultation Cardiovascular: Regular rate Abdomen: Normal bowel sounds Extremities: Other (2+ PE LLE) Neurological: Other (unable to ambulate, in bed with leg elevated) - Labs Result Diagrams: 10/07/18 04:18 10/07/18 04:18 Lab results: Laboratory Results - last 24 hr 10/07/18 08:22: Random Vancomycin 18.7 10/07/18 04:18: WBC 14.0 H, RBC 3.53 L, Hgb 10.8 L, Hct 32.3 L, MCV 91.3, MCH 30.5, MCHC 33.4, RDW 14.1, Plt Count 283, MPV 7.3 L, Neutrophils % 71.7, Lymphocytes % 4.5 L, Monocytes % 9.3, Eosinophils % 14.5 H, Basophils % 0.1, Neutrophils # 10.0 H, Lymphocytes # 0.6 L, Monocytes # 1.3 H, Eosinophils # 2.0 H, Basophils # 0.0 10/07/18 04:18: Sodium 137, Potassium 4.2, Chloride 108 H, Carbon Dioxide 14 L, Anion Gap 19, BUN 43 H, Creatinine 0.98, Estimated GFR (MDRD) 54, Glucose 70 L, Calcium 10.6 H 10/06/18 20:02: Vancomycin Trough 22.9 A/P - Problem (1) Sarcoma of lower extremity Current Visit: Yes Code(s): C49.20 - MALIG NEOPLM OF CONN AND SOFT TISS OF UNSP LOW LIMB, INC HIP Status: Acute (2) DVT (deep venous thrombosis) Current Visit: Yes Code(s): I82.409 - ACUTE EMBOLISM AND THOMBOS UNSP DEEP VN UNSP LOWER EXTREMITY Status: Acute (3) Muscular deconditioning Current Visit: Yes Code(s): R29.898 - OTH SYMPTOMS AND SIGNS INVOLVING THE MUSCULOSKELETAL SYSTEM Status: Acute (4) Confusion caused by a drug Current Visit: Yes Code(s): F19.921 - OTH PSYCHOACTIVE SUBSTANCE USE, UNSP W INTOX W DELIRIUM Status: Acute - Plan Plan: * hospice being consulted * d/c lab draws * follow up on path results, i had a long discussion with her daughters and they understand she likely will not recover from this * DNAR
--- NOTE | 2018-10-07 12:24 | PDOC.FMACP ---
Advance Care Planning - Problem (1) Sarcoma of lower extremity Status: Acute Code(s): C49.20 - MALIG NEOPLM OF CONN AND SOFT TISS OF UNSP LOW LIMB, INC HIP (2) DVT (deep venous thrombosis) Status: Acute Code(s): I82.409 - ACUTE EMBOLISM AND THOMBOS UNSP DEEP VN UNSP LOWER EXTREMITY Qualifiers: DVT location: lower extremity (3) Muscular deconditioning Status: Acute Code(s): R29.898 - OTH SYMPTOMS AND SIGNS INVOLVING THE MUSCULOSKELETAL SYSTEM (4) Confusion caused by a drug Status: Acute Code(s): F19.921 - OTH PSYCHOACTIVE SUBSTANCE USE, UNSP W INTOX W DELIRIUM - Note Participants: family (we discussed that her QOL will not improve even with radiation. they are considering hospice) Summary: Advanced Care Planning was discussed. The diagnosis, prognosis and goals of care were discussed. Appropriate forms and documentation to accomplish the goals of care were discussed. All questions were answered. The Palliative Care Team will be engaged to assist with completion of any outstanding forms that are needed.
[2018-10-07] MEDS ORDERED: ALPRAZolam 0.25 MG TAB PO SCH (17:00)
[2018-10-07] MEDS: HYDROcodone/Acetaminophen 5/325 mg Tablet PO PRN (17:42)
[2018-10-08] MEDS: Sodium Chloride 0.9% 1,000 ML IV SCH ×3 (03:02→13:16)
[2018-10-08] MEDS: Piperacillin/Tazobactam 3.375 GM in Sodium Chloride 0.9% 100 ML IVPB SCH ×2 (05:14→13:19)
[2018-10-08] MEDS: Levothyroxine Sodium 100 MCG TAB PO SCH (05:16)
[2018-10-08 08:11] VITALS: BP 127/58; TEMP 98.8
[2018-10-08] MEDS ORDERED: Fluconazole 100 MG TAB PO SCH (09:00)
[2018-10-08] MEDS: Apixaban 5 MG TAB PO SCH (09:57)
[2018-10-08] MEDS: Nebivolol HCl 5 MG TAB PO SCH (09:58)
[2018-10-08] MEDS: Docusate 100 MG CAP PO SCH (09:58)
[2018-10-08] MEDS: ALPRAZolam 0.25 MG TAB PO SCH ×2 (09:59→15:10)
[2018-10-08] MEDS: Lisinopril 20 MG TAB PO SCH (10:00)
[2018-10-08] MEDS: Amlodipine 10 MG TAB PO SCH (10:00)
[2018-10-08] MEDS: Vancomycin HCl 1 GM in Premix Bag 1 BAG IVPB SCH (10:44)
--- NOTE | 2018-10-10 03:30 | PQF ---
DESTINY KEYS ERIN E MD [id number] CLINICAL DOCUMENTATION CLARIFICATION FORM: POST DISCHARGE Addendum to original discharge summary date: ____ Late entry note date: __ DATE: 10/10/18 ATTN: Michelle Díaz Please exercise your independent, professional judgment in responding to the clarification form. 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 Thank You. CLINICAL INDICATORS - SIGNS/ SYMPTOMS / LABS H and P pg.1- "Left leg tumor" H and P pg.2- "Extremities: Left leg extremity with swelling, edema, heat, and tenderness in the left proximal thigh" H and P pg.3- "Left thigh mass. Probable sarcoma" Medical Onco PN 10/07 pg.2 Sarcoma of lower extremity RISK FACTORS History of of lymphoma- H and P pg.1 DVT in the left leg popliteal- H and P pg.1 Left thigh cellulitis- H and P pg.3 TREATMENTS Oncology Consult 10/04/[address] guided left leg soft tissue mass biopsy-Lower Extremity CT 10/04 Vascular ultrasound- 10/03 (This form is maintained as a part of the permanent medical record) 2014 [email or web address]. All Rights Reserved [email or web address] [not provided] [email or web address]
[2018-10-11] MEDS ORDERED: Apixaban 5 MG TAB PO SCH (09:00)
== END 2018-10-08 15:16 | disposition hospice, home (50) | DRG 543 ==
LOC: ERS 10:57 → T4-A 19:54 → ONC 10-06 15:38
PROVIDERS: ADMIT Specialist; ATTEND Specialist
PROC: 0JBM3ZX Excision of Left Upper Leg Subcutaneous Tissue and Fascia, Percutaneous Approach, Diagnostic (ICD-10-PCS; principal; 2018-10-04)
DX: C49.22 Malignant neoplasm of connective and soft tissue of left lower limb, including hip (principal); I82.432 Acute embolism and thrombosis of left popliteal vein; C82.90 Follicular lymphoma, unspecified, unspecified site; L03.116 Cellulitis of left lower limb; E03.9 Hypothyroidism, unspecified; E78.5 Hyperlipidemia, unspecified; Z96.651 Presence of right artificial knee joint; F32.9 Major depressive disorder, single episode, unspecified; Z66 Do not resuscitate; Z90.710 Acquired absence of both cervix and uterus; Z88.5 Allergy status to narcotic agent; Z88.1 Allergy status to other antibiotic agents; R41.0 Disorientation, unspecified; T50.905A Adverse effect of unspecified drugs, medicaments and biological substances, initial encounter
CPT/HCPCS: 36415; 77012; 80048; 80053; 80202; 82550; 83605; 84443; 84550; 85025; 85610; 85730; 87040; 87086; 88184; 88307; 88341; 88342; 88360; 96361; 96365; 96372; 96375; J1650; J2250; J2405; J2543; J3010; J3370; J3490